=== PATIENT | male | born 1955 | race Caucasian/White ===

== ENCOUNTER 2016-09-17 08:00 | Observation (INO) | payer MEDICAID ==
[~2016-09-17] VITALS: Ht 180.3 cm; Wt 124.9 kg
[~2016-09-17 08:00] MED LIST: HYDR2TAB13 PO
[2016-10-01 10:12] VITALS: BP 149/79
[2016-10-01] MEDS ORDERED: GABA100C8 PO (10:46)
[2016-10-01] MEDS ORDERED: ATOR20TA9 PO (10:46)
[2016-10-01] MEDS ORDERED: TRAZ50TA18 PO (10:46)
[2016-10-01] MEDS ORDERED: PRIM50TA PO (10:46)
[2016-10-01] MEDS ORDERED: POTA20TA89 PO (10:46)
[2016-10-01] MEDS ORDERED: LISI40TA PO (10:46)
[2016-10-01] MEDS ORDERED: FLUO20CA19 PO (10:46)
[2016-10-01] MEDS ORDERED: INSU100V8 SQ (10:46)
[2016-10-01] MEDS ORDERED: DULA0.75 SC (10:46)
[2016-10-01] MEDS ORDERED: NAPR500T8 PO (10:46)
[2016-10-01] MEDS ORDERED: AMLO10TA2 PO (10:46)
[2016-10-01] MEDS ORDERED: TAMS0.4C2 PO (10:46)
[2016-10-01] MEDS ORDERED: METF10002 PO (10:46)
[2016-10-01] MEDS ORDERED: ASPI-496 PO (10:46)
[2016-10-01] MEDS ORDERED: FURO20TA3 PO (10:46)
[2016-10-01] MEDS ORDERED: ERGO500017 PO (10:46)
[2016-10-15] MEDS ORDERED: LACTATED RINGERS 1,000 ML IV SCH (06:03)
[2016-10-15 06:36] LABS: DAU SCREEN DISCLAIMER
[2016-10-15] MEDS ORDERED: FENTANYL PF 250 MCG/5ML ONE (06:40)
[2016-10-15] MEDS ORDERED: MIDAZOLAM 1 MG/ML, 2ML ONE ×2 (06:41→12:23)
[2016-10-15] MEDS ORDERED: ROPIvacaine/PF 0.2%, 20 ML ONE (06:48)
[2016-10-15] MEDS ORDERED: METOCLOPRAMIDE 5 MG/ML, 2ML ONE (07:14)
[2016-10-15] MEDS ORDERED: SUCCINYLCHOLINE 20 MG/ML, 10ML ONE (07:14)
[2016-10-15] MEDS ORDERED: CEFAZOLIN 1,000 MG ONE (07:14)
[2016-10-15] MEDS ORDERED: ROCURONIUM 10 MG/ML ONE (07:14)
[2016-10-15] MEDS ORDERED: ONDANSETRON 2MG/ML, 2ML ONE ×2 (07:14→11:47)
[2016-10-15] MEDS ORDERED: PROPOFOL 10 MG/ML, 20ML ONE (07:14)
[2016-10-15] MEDS ORDERED: NEOSTIGMINE 1 MG/ML, 10ML ONE (07:14)
[2016-10-15] MEDS ORDERED: ALBUTEROL SULFATE 2.5 MG/3 ML NPPB PRN (08:30)
[2016-10-15] MEDS ORDERED: ONDANSETRON 2MG/ML, 2ML IVPush PRN ×2 (08:30→11:30)
[2016-10-15] MEDS ORDERED: OXYcodone 5 MG/5 ML ORAL.SOL UDC PO PRN (08:30)
[2016-10-15] MEDS ORDERED: MIDAZOLAM 1 MG/ML, 2ML IV PRN (08:30)
[2016-10-15] MEDS ORDERED: ACETAMINOPHEN 325 MG TABLET PO PRN (08:30)
[2016-10-15] MEDS ORDERED: PROMETHAZINE 25 MG/ML, 1ML IV PRN (08:30)
[2016-10-15] MEDS ORDERED: LABETALOL 5MG/ML, 20ML IV PRN (08:30)
[2016-10-15] MEDS ORDERED: hydrALAzine 20 MG/ML, 1ML IV PRN (08:30)
[2016-10-15] MEDS ORDERED: MEPERIDINE/PF 25MG/0.5ML IVPush PRN (08:30)
[2016-10-15] MEDS ORDERED: METOPROLOL 1 MG/ML, 5ML IV PRN (08:30)
[2016-10-15] MEDS ORDERED: EPHEDRINE 50 MG/ML, 1ML IVPush PRN (08:30)
[2016-10-15] MEDS ORDERED: ALBUTEROL/IPRATROPIUM 2.5MG/0.5MG, 3 ML NPPB PRN (08:30)
[2016-10-15] MEDS ORDERED: PROMETHAZINE 25 MG/ML, 1ML IM PRN (11:30)
[2016-10-15] MEDS ORDERED: SENNA/DOCUSATE TABLET PO PRN (11:30)
[2016-10-15] MEDS ORDERED: HYDROcodone/APAP 5/325 TABLET PO PRN (11:30)
[2016-10-15] MEDS ORDERED: ACETAMINOPHEN 650 MG/20.3 ML UDC ONE (11:46)
[2016-10-15] MEDS ORDERED: ACETAMINOPHEN 325 MG TABLET ONE (11:47)
[2016-10-15] MEDS ORDERED: FENTANYL PF 100 MCG/2ML ONE (11:47)
[2016-10-15] MEDS ORDERED: HYDROmorphone 2 MG/ML, 1ML ONE (11:47)
[2016-10-15] MEDS ORDERED: OXYcodone 5 MG/5 ML ORAL.SOL UDC ONE (11:48)
[2016-10-15] MEDS: FENTANYL PF 100 MCG/2ML IV PRN ×2 (11:50→12:24)
[2016-10-15] MEDS: HYDROmorphone 1 MG/ML, 1ML IV PRN ×4 (11:53→12:52)
[2016-10-15] MEDS ORDERED: TRAZODONE 50MG TABLET PO PRN (12:00)
[2016-10-15 13:05] VITALS: BP 96/60
[2016-10-15] MEDS: morphine SULFATE 10 MG/ML, 1ML IVPush PRN ×8 (14:18→23:03)
[2016-10-15 14:20] VITALS: BP 101/61
[2016-10-15] MEDS: CEFAZOLIN PMX 2GM/50ML 50 ML IVPB SCH (15:36)
[2016-10-15] MEDS: OXYcodone/APAP 5/325MG TABLET PO PRN ×2 (15:49→20:06)
[2016-10-15 20:00] VITALS: BP 129/76
[2016-10-15] MEDS: GABAPENTIN 300 MG CAPSULE PO SCH (20:06)
[2016-10-15] MEDS: PRIMIDONE 50 MG TABLET PO SCH (20:07)
[2016-10-15] MEDS: INSULIN DETEMIR 100 UNITS/ML, PEN SQ-INSULIN SCH (20:50)
[2016-10-15] MEDS ORDERED: TAMSULOSIN 0.4 MG CAP.ER.24H PO SCH (21:00)
[2016-10-15] MEDS ORDERED: ATORVASTATIN 20 MG TABLET PO SCH (21:00)
[2016-10-15 22:07] VITALS: BP 135/84
[2016-10-16 00:10] VITALS: BP 129/69
[2016-10-16] MEDS: OXYcodone/APAP 5/325MG TABLET PO PRN ×5 (00:12→23:23)
[2016-10-16] MEDS: CEFAZOLIN PMX 2GM/50ML 50 ML IVPB SCH (00:12)
[2016-10-16] MEDS: morphine SULFATE 10 MG/ML, 1ML IVPush PRN ×4 (00:18→04:48)
[2016-10-16 04:07] VITALS: BP 117/69
[2016-10-16] MEDS ORDERED: TRAZODONE 50MG TABLET PO PRN (08:00)
[2016-10-16] MEDS ORDERED: ERGOCALCIFEROL 50,000 UNIT CAPSULE PO SCH (08:00)
[2016-10-16] MEDS ORDERED: DOCUSATE 100 MG CAPSULE PO PRN (08:00)
[2016-10-16] MEDS ORDERED: ONDANSETRON ODT 4 MG PO PRN (08:00)
[2016-10-16 08:16] VITALS: BP 130/78
[2016-10-16] MEDS ORDERED: FUROSEMIDE 20 MG TABLET PO SCH ×2 (09:00)
[2016-10-16] MEDS ORDERED: TEMPLATE NON-FORMULARY MED. (Amlodipine Besylate (Amlodipine Besylate**) 10 MG) PO SCH (09:00)
[2016-10-16] MEDS ORDERED: GABAPENTIN 300 MG CAPSULE PO SCH (09:00)
[2016-10-16] MEDS ORDERED: metFORMIN 500 MG TABLET PO SCH (09:00)
[2016-10-16] MEDS ORDERED: ASPIRIN 81 MG TABLET EC PO SCH (09:00)
[2016-10-16] MEDS ORDERED: LISINOPRIL 20 MG TABLET PO SCH ×2 (09:00)
[2016-10-16] MEDS ORDERED: FLUOXETINE 20 MG CAPSULE PO SCH ×2 (09:00)
[2016-10-16] MEDS: PRIMIDONE 50 MG TABLET PO SCH ×4 (09:00→22:03)
[2016-10-16] MEDS: AMLODIPINE 5 MG TABLET PO SCH (09:42)
[2016-10-16] MEDS: GABAPENTIN 300 MG CAPSULE PO SCH (09:42)
[2016-10-16] MEDS: ASPIRIN 81 MG TABLET EC PO SCH (09:42)
[2016-10-16] MEDS: INSULIN DETEMIR 100 UNITS/ML, PEN SQ-INSULIN SCH ×2 (09:43→22:03)
[2016-10-16] MEDS: POTASSIUM CHLORIDE 20 MEQ TAB.ER.PRT PO SCH (11:40)
[2016-10-16] MEDS: INSULIN ASPART 100 UNITS/ML, PEN SQ-INSULIN SCH ×3 (12:26→21:00)
[2016-10-16 13:32] VITALS: BP 123/74
[2016-10-16] MEDS: METOPROLOL TARTRATE 25 MG TABLET PO SCH (17:28)
[2016-10-16] MEDS ORDERED: ATORVASTATIN 20 MG TABLET PO SCH (21:00)
[2016-10-16] MEDS ORDERED: TAMSULOSIN 0.4 MG CAP.ER.24H PO SCH (21:00)
[2016-10-16 21:52] VITALS: BP 115/65
[2016-10-16] MEDS: TEMAZEPAM 15 MG CAPSULE PO PRN (23:43)
[2016-10-17] MEDS: TEMAZEPAM 15 MG CAPSULE PO PRN (00:40)
[2016-10-17 02:17] VITALS: BP 127/63
[2016-10-17] MEDS: OXYcodone/APAP 5/325MG TABLET PO PRN ×2 (03:41→06:26)
[2016-10-17] MEDS: METOPROLOL TARTRATE 25 MG TABLET PO SCH (06:26)
[2016-10-17 07:55] VITALS: BP 105/58
[2016-10-17] MEDS: INSULIN ASPART 100 UNITS/ML, PEN SQ-INSULIN SCH ×2 (08:55→11:27)
[2016-10-17] MEDS: AMLODIPINE 5 MG TABLET PO SCH (08:57)
[2016-10-17] MEDS: PRIMIDONE 50 MG TABLET PO SCH ×2 (08:57→09:02)
[2016-10-17] MEDS ORDERED: LISINOPRIL 20 MG TABLET PO SCH (09:00)
[2016-10-17] MEDS: ASPIRIN 81 MG TABLET EC PO SCH (09:02)
[2016-10-17] MEDS: POTASSIUM CHLORIDE 20 MEQ TAB.ER.PRT PO SCH (09:02)
[2016-10-17] MEDS: INSULIN DETEMIR 100 UNITS/ML, PEN SQ-INSULIN SCH (09:05)
[2016-10-17 12:20] VITALS: BP 121/72
[2016-10-17] MEDS ORDERED: METO25TA35 PO ×2 (13:08→13:10)
[2016-10-17] MEDS ORDERED: LISI-170 PO (13:14)
[2016-10-17] MEDS ORDERED: OXYC-302 PO (13:33)
[2016-10-17 13:45] VITALS: BP 114/62
== END 2016-10-17 15:04 | disposition home or self-care (01) ==
LOC: INTOOBSV 10-15 05:16 → ORIP 10-15 05:16 → 4NOR 10-15 13:00
PROVIDERS: ADMIT Orthopaedic Surgery; ATTEND Internal Medicine
DX: S42.201K Unspecified fracture of upper end of right humerus, subsequent encounter for fracture with nonunion (principal); E11.9 Type 2 diabetes mellitus without complications; I10 Essential (primary) hypertension; F17.200 Nicotine dependence, unspecified, uncomplicated; Z96.611 Presence of right artificial shoulder joint; X58.XXXA Exposure to other specified factors, initial encounter; Y92.89 Other specified places as the place of occurrence of the external cause; Y93.89 Activity, other specified; Y99.8 Other external cause status
CPT/HCPCS: 23474; 36415; 73020; 80307; 82962; 83036; 96365; 96372; 96375; 96376; C1713; C1776; G0378; J0330; J0690; J1170; J1815; J2250; J2270; J2405; J2704; J2710; J2765; J2795; J3010; J7120

== ENCOUNTER → 2016-10-01 | Outpatient (CLI) | payer MEDICAID ==
[~2016-10-01] MED LIST changes: +AMLO10TA2 PO; +ASPI-496 PO; +ATOR20TA9 PO; +DULA0.75 SC; +ERGO500017 PO; +FLUO20CA19 PO; +FURO20TA3 PO; +GABA100C8 PO; +INSU100V8 SQ; +LISI40TA PO; +METF10002 PO; +NAPR500T8 PO; +POTA20TA89 PO; +PRIM50TA PO; +TAMS0.4C2 PO; +TRAZ50TA18 PO
[2016-10-01 11:06] LABS: ASPARTATE AMINO TRANSFERASE 13 U/L (15-37); BLOOD UREA NITROGEN 29 mg/dL (7-18)
== END | disposition home or self-care (01) ==
LOC: STAR 09:44
PROVIDERS: ATTEND Orthopaedic Surgery
DX: Z01.818 Encounter for other preprocedural examination (principal); S42.354D Nondisplaced comminuted fracture of shaft of humerus, right arm, subsequent encounter for fracture with routine healing; X58.XXXD Exposure to other specified factors, subsequent encounter; E11.9 Type 2 diabetes mellitus without complications
CPT/HCPCS: 36415; 80053; 93005

== ENCOUNTER 2017-01-12 05:16 | Observation (INO) | payer MEDICAID ==
[2017-01-07 10:33] VITALS: BP 181/85
[~2017-01-12] VITALS: Ht 177.8 cm; Wt 126.6 kg
[~2017-01-12 05:16] MED LIST changes: +CARBIDOPA-LEVO PEG; +DONE10TA7 PO; +GABA-826 PO; -GABA100C8 PO; -HYDR2TAB13 PO; +HYDR2TAB29 PO; +LISI-170 PO; +METO25TA35 PO; +OXYC-302 PO
[2017-01-12] MEDS ORDERED: VANCOMYCIN PER PHARMACY MC STA (05:45)
[2017-01-12] MEDS ORDERED: LACTATED RINGERS 1,000 ML IV SCH (05:59)
[2017-01-12] MEDS ORDERED: LIDOCAINE 1%, 2ML SQ PRN (06:00)
[2017-01-12] MEDS ORDERED: VANCOMYCIN 2,000 MG in SODIUM CHLORIDE 0.9% 500 ML IV ONE (06:00)
[2017-01-12] MEDS ORDERED: LIDOCAINE 1%, 2ML ONE ×2 (06:07→06:56)
[2017-01-12] MEDS ORDERED: SCOPOLAMINE PATCH, 1.5MG PATCH.TD72 TD ONE ×2 (06:07→06:30)
[2017-01-12] MEDS ORDERED: FENTANYL PF 100 MCG/2ML ONE ×3 (06:10→07:09)
[2017-01-12] MEDS ORDERED: MIDAZOLAM 1 MG/ML, 2ML ONE (06:10)
[2017-01-12] MEDS ORDERED: BUPIVACAINE/PF 0.5% ONE ×2 (06:13→06:36)
[2017-01-12] MEDS ORDERED: VANCOMYCIN 1,000 MG ONE (06:36)
[2017-01-12] MEDS ORDERED: CLINDAMYCIN 150 MG/ML, 6ML ONE (06:36)
[2017-01-12] MEDS ORDERED: ROPIvacaine/PF 0.5%, 30 ML ONE (06:36)
[2017-01-12] MEDS ORDERED: CARB1TAB20 PO (06:50)
[2017-01-12] MEDS ORDERED: CARB1TAB22 PO (06:51)
[2017-01-12] MEDS ORDERED: RANITIDINE PO (06:58)
[2017-01-12] MEDS ORDERED: FENTANYL PF 100 MCG/2ML IV PRN (08:30)
[2017-01-12] MEDS ORDERED: hydrALAzine 20 MG/ML, 1ML IV PRN (08:30)
[2017-01-12] MEDS ORDERED: ALBUTEROL/IPRATROPIUM 2.5MG/0.5MG, 3 ML NPPB PRN (08:30)
[2017-01-12] MEDS ORDERED: METOPROLOL 1 MG/ML, 5ML IV PRN (08:30)
[2017-01-12] MEDS ORDERED: HYDROmorphone 1 MG/ML, 1ML IV PRN (08:30)
[2017-01-12] MEDS ORDERED: OXYcodone 5 MG/5 ML ORAL.SOL UDC PO PRN (08:30)
[2017-01-12] MEDS ORDERED: PROMETHAZINE 25 MG/ML, 1ML IV PRN (08:30)
[2017-01-12] MEDS ORDERED: MEPERIDINE/PF 25MG/0.5ML IVPush PRN (08:30)
[2017-01-12] MEDS ORDERED: ACETAMINOPHEN 325 MG TABLET PO PRN (08:30)
[2017-01-12] MEDS ORDERED: D5%-0.45% NACL 1,000 ML IV SCH (08:59)
[2017-01-12] MEDS: MULTIVITAMINS/MINERALS TABLET PO SCH (09:00)
[2017-01-12] MEDS ORDERED: morphine SULFATE 10 MG/ML, 1ML IVPush PRN (09:00)
[2017-01-12] MEDS ORDERED: ONDANSETRON 2MG/ML, 2ML IVPush PRN (09:00)
[2017-01-12] MEDS ORDERED: MAGNESIUM HYDROXIDE 8%, 30ML UDC PO PRN (09:00)
[2017-01-12] MEDS ORDERED: BISACODYL 10 MG SUPP PR PRN (09:00)
[2017-01-12] MEDS ORDERED: HYDROcodone/APAP 5/325 TABLET PO PRN (09:00)
[2017-01-12] MEDS ORDERED: SENNA/DOCUSATE TABLET PO PRN (09:00)
[2017-01-12] MEDS ORDERED: OXYcodone 5 MG/5 ML ORAL.SOL UDC ONE (09:27)
[2017-01-12] MEDS ORDERED: ACETAMINOPHEN 650 MG/20.3 ML UDC ONE (09:27)
[2017-01-12 10:15] VITALS: BP 135/73
[2017-01-12] MEDS: OXYcodone/APAP 5/325MG TABLET PO PRN ×3 (13:53→23:08)
[2017-01-12 13:57] VITALS: BP 136/77
[2017-01-12] MEDS: CLINDAMYCIN PMX 600MG/50ML 50 ML IVPB SCH ×2 (15:32→22:41)
[2017-01-12] MEDS ORDERED: NICOTINE 21 MG/24 HR PATCH.TD24 TD SCH (16:00)
[2017-01-12] MEDS ORDERED: PROPOFOL 10 MG/ML, 20ML ONE (16:31)
[2017-01-12] MEDS ORDERED: SUCCINYLCHOLINE 20 MG/ML, 10ML ONE (16:31)
[2017-01-12] MEDS ORDERED: EPHEDRINE 50 MG/ML, 1ML ONE (16:31)
[2017-01-12] MEDS ORDERED: ONDANSETRON 2MG/ML, 2ML ONE (16:31)
[2017-01-12] MEDS: CARBIDOPA/LEVODOPA CR 25 MG/100 MG TABLET PO SCH ×2 (17:01→22:24)
[2017-01-12] MEDS: INSULIN ASPART 100 UNITS/ML, PEN SQ-INSULIN SCH ×2 (17:44→22:40)
[2017-01-12 19:00] VITALS: BP 128/73
[2017-01-12] MEDS ORDERED: ATORVASTATIN 20 MG TABLET PO SCH (21:00)
[2017-01-12] MEDS ORDERED: DONEPEZIL 10 MG TABLET PO SCH (21:00)
[2017-01-12] MEDS: PRIMIDONE 50 MG TABLET PO SCH (22:24)
[2017-01-12] MEDS: GABAPENTIN 300 MG CAPSULE PO SCH (22:24)
[2017-01-12] MEDS: SODIUM CHLORIDE 0.45% 1,000 ML IV SCH (22:25)
[2017-01-12 23:53] VITALS: BP 152/89
[2017-01-13] MEDS: OXYcodone/APAP 5/325MG TABLET PO PRN ×3 (03:01→12:01)
[2017-01-13 03:45] VITALS: BP 142/66
[2017-01-13] MEDS: CARBIDOPA/LEVODOPA CR 25 MG/100 MG TABLET PO SCH ×2 (06:44→10:35)
[2017-01-13] MEDS: CLINDAMYCIN PMX 600MG/50ML 50 ML IVPB SCH (06:44)
[2017-01-13 07:32] VITALS: BP 128/67
[2017-01-13] MEDS: MULTIVITAMINS/MINERALS TABLET PO SCH (08:20)
[2017-01-13] MEDS: GABAPENTIN 300 MG CAPSULE PO SCH (08:20)
[2017-01-13] MEDS: SODIUM CHLORIDE 0.45% 1,000 ML IV SCH (08:20)
[2017-01-13] MEDS: INSULIN ASPART 100 UNITS/ML, PEN SQ-INSULIN SCH ×2 (08:21→11:47)
[2017-01-13] MEDS: PRIMIDONE 50 MG TABLET PO SCH (08:21)
[2017-01-13] MEDS ORDERED: TAMSULOSIN 0.4 MG CAP.ER.24H PO SCH (09:00)
[2017-01-13] MEDS ORDERED: LISINOPRIL 20 MG TABLET PO SCH (09:00)
[2017-01-13] MEDS ORDERED: AMLODIPINE 5 MG TABLET PO SCH (09:00)
[2017-01-13] MEDS ORDERED: FLUOXETINE 20 MG CAPSULE PO SCH (09:00)
[2017-01-13 11:53] VITALS: BP 137/79
[2017-01-13] MEDS ORDERED: OXYC5CAP2 PO (11:58)
== END 2017-01-13 13:18 | disposition home or self-care (01) ==
LOC: INTOOBSV 05:16 → ORIP 05:16 → 4NOR 10:10
PROVIDERS: ADMIT Orthopaedic Surgery; ATTEND Orthopaedic Surgery
DX: T84.028A Dislocation of other internal joint prosthesis, initial encounter (principal); S42.201A Unspecified fracture of upper end of right humerus, initial encounter for closed fracture; E11.9 Type 2 diabetes mellitus without complications; I10 Essential (primary) hypertension; F10.10 Alcohol abuse, uncomplicated; E66.9 Obesity, unspecified; M25.319 Other instability, unspecified shoulder; F17.210 Nicotine dependence, cigarettes, uncomplicated; Y79.2 Prosthetic and other implants, materials and accessory orthopedic devices associated with adverse incidents; X58.XXXA Exposure to other specified factors, initial encounter; Y93.89 Activity, other specified; Y92.89 Other specified places as the place of occurrence of the external cause; Y99.8 Other external cause status; Z96.611 Presence of right artificial shoulder joint
CPT/HCPCS: 23473; 82962; 87070; 87075; 87077; 87186; 87205; 96365; 96366; 96367; 96372; 96375; 97166; C1776; G0378; J0330; J1815; J2250; J2405; J2704; J3010; J3370; J3490; J7040; J7120; J2795

== ENCOUNTER 2018-10-07 12:15 | Inpatient (IN) | payer MEDICAID ==
[~2018-10-07] VITALS: Ht 180.3 cm; Wt 130.0 kg
[~2018-10-07 12:15] MED LIST changes: -AMLO10TA2 PO; +AMLO10TA8 PO; +ATOR20TA37 PO; -ATOR20TA9 PO; +CARB1TAB20 PO; +CARB1TAB22 PO; +OXYC5CAP2 PO; +RANITIDINE PO; -TRAZ50TA18 PO; +TRAZ50TA66 PO
--- NOTE | 2018-10-07 12:35 | NUR ---
BREAK RN: PT STEADY UPON AMBULATION TO RESTROOM WITH PT'S OWN WALKER. PT GRUFF WITH PLANT TENDER STATING "WHEN I'M I GOING TO GET A REAL ROOM? THERE'S NO BATHROOMS HERE?" RN EXPLAINED IN THE ER, THERE ARE NOT BATHROOMS IN ALL THE ROOMS. PT STATED "WELL I'M HERE TO BE ADMITTED FOR ANTIBIOTICS FOR MY LEG FOR A FEW DAYS, WHY DON'T I HAVE A REAL ROOM UPSTAIRS?" RN EXPLAINED PROCESS FOR ADMISSION. PT VERBALIZED UNDERSTANDING.
[2018-10-07] MEDS ORDERED: SODIUM CHLORIDE FLUSH 10ML SYR IVF ONE ×2 (13:00→13:30)
[2018-10-07 13:27] LABS: BASOPHILS # (AUTO) 0.02 x10^3/uL (0-0.1); BASOPHILS % (AUTO) 0 % (0-1); EOSINOPHILS # (AUTO) 0.13 x10^3/uL (0-0.4); EOSINOPHILS % (AUTO) 1 % (1-7); LYMPHOCYTES # (AUTO) 1.19 x10^3/uL (1-3.4); LYMPHOCYTES % (AUTO) 10 % (22-44); MD NO; MEAN CORPUSCULAR HEMOGLOBIN 26.4 pg (27.5-34.5); MEAN CORPUSCULAR HGB CONC 32.9 g/dL (33.2-36.2); MEAN CORPUSCULAR VOLUME 80.2 fL (81-97); MEAN PLATELET VOLUME 8.3 fL (7.4-10.4); MONOCYTES # (AUTO) 0.54 x10^3/uL (0.2-0.8); MONOCYTES % (AUTO) 5 % (2-9); NEUTROPHILS # (AUTO) 9.89 x10^3/uL (1.8-6.8); NEUTROPHILS % (AUTO) 84 % (42-75); PLATELET COUNT 265 x10^3/uL (130-400); RED CELL DISTRIBUTION WIDTH 16.9 % (9.4-14.8)
[2018-10-07] MEDS ORDERED: VANCOMYCIN PER PHARMACY IV ONE (13:30)
[2018-10-07] MEDS ORDERED: VANCOMYCIN 2,500 MG in SODIUM CHLORIDE 0.9% 500 ML IV ONE (13:30)
[2018-10-07] MEDS ORDERED: AMPICILLIN/SULBACTAM 3 GM in SODIUM CHLORIDE 0.9% 100 ML IV ONE (13:30)
[2018-10-07 13:39] LABS: ALBUMIN 3.3 g/dL (3.4-5.0); ANION GAP 10 mmol/L (5-15); CALCIUM 9.1 mg/dL (8.5-10.1); CHLORIDE 104 mmol/L (98-107); CREATININE 0.87 mg/dL (0.7-1.3)
--- NOTE | 2018-10-07 13:44 | NUR ---
all cultures drawn. patient getting antibiotics now. on monitor, vss.
--- NOTE | 2018-10-07 13:46 | NUR ---
patient initially arrived for wound on bottom of left foot. its a oozing infected ulcer quarter sized ball of foot. he has poor cap refill ble and pink discolorations to left foot. 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 patient states he has no feeling in ble and he unsure how long wound has been present. he is kind, cooperative. he is unkept with visible dirt on hands/long chamorro/fingers and body. patient denies any pain. patient lives [facility]. he is a poor historian and is unsure about his meds and history. he is sure he is diabetic.
[2018-10-07] MEDS ORDERED: BACITRACIN ZINC OINT 500U/GM, 0.9 GM ONE (15:06)
--- NOTE | 2018-10-07 15:39 | NUR ---
patient just left for mri. patient awaiting room upstairs for admission
--- NOTE | 2018-10-07 15:51 | NUR ---
patient in mri. report given to Mercedes for room 457. patient will be admitted once he is back from mri.
--- NOTE | 2018-10-07 16:27 | NUR ---
called mri and patient will go direct to room from mri. patient belongings and fwwalker brought to room.
[2018-10-07] MEDS ORDERED: GADOBUTROL 10 MMOL/10 ML PFS ONE (16:34)
[2018-10-07 17:26] VITALS: BP 145/66
[2018-10-07] MEDS ORDERED: morphine SULFATE 10 MG/ML, 1ML IVPush PRN (18:00)
[2018-10-07] MEDS ORDERED: POLYETHYLENE GLYCOL 17 GM PACKET PO PRN (18:00)
[2018-10-07] MEDS ORDERED: BISACODYL 10 MG SUPP PR PRN (18:00)
[2018-10-07] MEDS ORDERED: ACETAMINOPHEN 325 MG TABLET PO PRN (18:00)
[2018-10-07] MEDS ORDERED: DOCUSATE 100 MG CAPSULE PO PRN (18:00)
[2018-10-07] MEDS ORDERED: VANCOMYCIN PER PHARMACY MC PRN (18:00)
[2018-10-07] MEDS ORDERED: PROMETHAZINE 25 MG/ML, 1ML IM PRN (18:00)
[2018-10-07] MEDS: INSULIN GLARGINE 100 UNITS/ML, PEN SQ-INSULIN SCH ×2 (18:00→21:19)
[2018-10-07] MEDS ORDERED: VANCOMYCIN PMX 1GM/200ML 200 ML IV ONE (18:00)
[2018-10-07] MEDS ORDERED: hydrALAzine 20 MG/ML, 1ML IVPush PRN (18:00)
[2018-10-07] MEDS ORDERED: ONDANSETRON ODT 4 MG PO PRN (18:00)
[2018-10-07] MEDS ORDERED: ONDANSETRON 2MG/ML, 2ML IVPush PRN (18:00)
[2018-10-07] MEDS: SODIUM CHLORIDE 0.9% 1,000 ML IV SCH (18:25)
[2018-10-07] MEDS: CARBIDOPA/LEVODOPA 25 MG/100 MG TABLET PO SCH ×2 (18:25→20:51)
[2018-10-07] MEDS: metFORMIN 500 MG TABLET PO SCH ×2 (18:25→20:51)
[2018-10-07] MEDS: HEPARIN 5,000 UNITS/ML, 1ML SQ SCH (18:28)
[2018-10-07] MEDS ORDERED: PHARMACOKINETIC CONSULTATION MC ONE (18:30)
[2018-10-07] MEDS ORDERED: PHARMACOKINETIC MONITORING MC PRN (18:30)
[2018-10-07 18:58] LABS: C-REACTIVE PROTEIN, QUANT 2.1 mg/dL (0.02-0.49); FREE T4 (FREE THYROXINE) 1.11 ng/dL (0.76-1.46); HCT (SEDRATE) 48.9 % (39.2-51.8); THYROID STIMULATING HORMONE 0.631 mIU/L (0.358-3.740)
[2018-10-07 19:22] VITALS: BP 160/79
[2018-10-07] MEDS ORDERED: VANCOMYCIN 2,100 MG in SODIUM CHLORIDE 0.9% 500 ML IV SCH ×2 (19:30→20:41)
[2018-10-07 20:03] LABS: HEMOGLOBIN A1C 6.8 % (4.2-6.3)
[2018-10-07] MEDS: FAMOTIDINE 20 MG TABLET PO SCH (20:34)
[2018-10-07] MEDS: ASPIRIN 81 MG TABLET EC PO SCH (20:34)
[2018-10-07] MEDS: PRIMIDONE 50 MG TABLET PO SCH (20:34)
[2018-10-07] MEDS: GABAPENTIN 300 MG CAPSULE PO SCH (20:34)
[2018-10-08] MEDS: AMPICILLIN/SULBACTAM 3 GM in SODIUM CHLORIDE 0.9% 100 ML IV SCH ×4 (01:00→20:40)
[2018-10-08 01:10] VITALS: BP 137/72
[2018-10-08] MEDS: HEPARIN 5,000 UNITS/ML, 1ML SQ SCH ×3 (03:42→20:40)
[2018-10-08] MEDS: CARBIDOPA/LEVODOPA 25 MG/100 MG TABLET PO SCH ×4 (05:23→20:41)
[2018-10-08 05:39] LABS: ALBUMIN 2.6 g/dL (3.4-5.0); ANION GAP 7 mmol/L (5-15); CALCIUM 8.1 mg/dL (8.5-10.1); CHLORIDE 109 mmol/L (98-107)
[2018-10-08 05:42] LABS: ALANINE AMINOTRANSFERASE 9 U/L (12-78); ALKALINE PHOSPHATASE 91 U/L (45-117); BILIRUBIN,TOTAL 0.3 mg/dL (0.2-1.0); CHOL/HDL RATIO 2.1; CHOLESTEROL, TOTAL 93 mg/dL (140-239); CREATININE 0.69 mg/dL (0.7-1.3); HDL CHOL % 47 % (26-37); HDL CHOLESTEROL (DIRECT) 44 mg/dL (40-60); LDL CHOLESTEROL,CALCULATED 27 mg/dL (54-169); LDL/HDL RATIO 0.6 (0.5-3.0); TOTAL PROTEIN 6.2 g/dL (6.4-8.2); TRIGLYCERIDES 112 mg/dL (50-200); VLDL CHOLESTEROL 22 mg/dL (0-25)
[2018-10-08 05:47] LABS: BASOPHILS # (AUTO) 0.03 x10^3/uL (0-0.1); BASOPHILS % (AUTO) 0 % (0-1); EOSINOPHILS # (AUTO) 0.24 x10^3/uL (0-0.4); EOSINOPHILS % (AUTO) 2 % (1-7); LYMPHOCYTES # (AUTO) 1.23 x10^3/uL (1-3.4); LYMPHOCYTES % (AUTO) 11 % (22-44); MD NO; MEAN CORPUSCULAR HEMOGLOBIN 26.2 pg (27.5-34.5); MEAN CORPUSCULAR HGB CONC 32.7 g/dL (33.2-36.2); MEAN PLATELET VOLUME 8.6 fL (7.4-10.4); MONOCYTES # (AUTO) 0.54 x10^3/uL (0.2-0.8); MONOCYTES % (AUTO) 5 % (2-9); NEUTROPHILS # (AUTO) 8.88 x10^3/uL (1.8-6.8); NEUTROPHILS % (AUTO) 81 % (42-75); PLATELET COUNT 230 x10^3/uL (130-400); RED BLOOD COUNT 5.54 x10^6/uL (4.38-5.82); RED CELL DISTRIBUTION WIDTH 17.5 % (9.4-14.8)
[2018-10-08 08:05] VITALS: BP 137/73
[2018-10-08] MEDS: PRIMIDONE 50 MG TABLET PO SCH ×2 (08:23→20:41)
[2018-10-08] MEDS: FAMOTIDINE 20 MG TABLET PO SCH ×2 (08:24→20:41)
[2018-10-08] MEDS: TAMSULOSIN 0.4 MG CAP.ER.24H PO SCH (08:25)
[2018-10-08] MEDS: ATORVASTATIN 20 MG TABLET PO SCH (08:25)
[2018-10-08] MEDS: DONEPEZIL 10 MG TABLET PO SCH (08:25)
[2018-10-08] MEDS: GABAPENTIN 300 MG CAPSULE PO SCH ×2 (08:25→20:41)
[2018-10-08] MEDS: FUROSEMIDE 20 MG TABLET PO SCH (08:25)
[2018-10-08] MEDS: AMLODIPINE 10 MG TAB PO SCH (08:26)
[2018-10-08] MEDS: LISINOPRIL 20 MG TABLET PO SCH (08:34)
[2018-10-08] MEDS ORDERED: RANITIDINE PO SCH (09:00)
[2018-10-08] MEDS: INSULIN LISPRO 100 UNITS/ML, PEN SQ-INSULIN SCH ×3 (11:00→20:48)
[2018-10-08] MEDS: SODIUM CHLORIDE 0.9% 1,000 ML IV SCH (11:18)
[2018-10-08] MEDS: POTASSIUM CHLORIDE 20 MEQ TAB.ER.PRT PO SCH (12:23)
[2018-10-08 13:33] VITALS: BP 136/80
[2018-10-08] MEDS: FLUOXETINE HCL 20 MG CAPSULE PO SCH (16:09)
[2018-10-08 19:17] VITALS: BP 152/64
[2018-10-08] MEDS: ASPIRIN 81 MG TABLET EC PO SCH (20:43)
[2018-10-08] MEDS: INSULIN GLARGINE 100 UNITS/ML, PEN SQ-INSULIN SCH (20:49)
[2018-10-08] MEDS: VANCOMYCIN 2,100 MG in SODIUM CHLORIDE 0.9% 500 ML IV SCH (22:19)
[2018-10-09 00:04] VITALS: BP 146/77
[2018-10-09] MEDS: VANCOMYCIN 2,100 MG in SODIUM CHLORIDE 0.9% 500 ML IV SCH (03:30)
[2018-10-09] MEDS: INSULIN LISPRO 100 UNITS/ML, PEN SQ-INSULIN SCH ×4 (05:46→21:48)
[2018-10-09] MEDS: CARBIDOPA/LEVODOPA 25 MG/100 MG TABLET PO SCH ×4 (05:46→21:49)
[2018-10-09] MEDS: HEPARIN 5,000 UNITS/ML, 1ML SQ SCH ×3 (05:46→23:57)
[2018-10-09 08:00] VITALS: BP 142/78
[2018-10-09] MEDS: AMLODIPINE 10 MG TAB PO SCH (08:02)
[2018-10-09] MEDS: DONEPEZIL 10 MG TABLET PO SCH (08:03)
[2018-10-09] MEDS: FAMOTIDINE 20 MG TABLET PO SCH ×2 (08:03→21:49)
[2018-10-09] MEDS: ATORVASTATIN 20 MG TABLET PO SCH (08:03)
[2018-10-09] MEDS: LISINOPRIL 20 MG TABLET PO SCH (08:03)
[2018-10-09] MEDS: TAMSULOSIN 0.4 MG CAP.ER.24H PO SCH (08:03)
[2018-10-09] MEDS: FUROSEMIDE 20 MG TABLET PO SCH (08:03)
[2018-10-09] MEDS: GABAPENTIN 300 MG CAPSULE PO SCH ×2 (08:03→21:49)
[2018-10-09] MEDS: PRIMIDONE 50 MG TABLET PO SCH ×2 (10:17→21:49)
[2018-10-09] MEDS: AMPICILLIN/SULBACTAM 3 GM in SODIUM CHLORIDE 0.9% 100 ML IV SCH ×4 (10:17→23:52)
[2018-10-09] MEDS: POTASSIUM CHLORIDE 20 MEQ TAB.ER.PRT PO SCH (11:19)
[2018-10-09 15:45] VITALS: BP 131/69
[2018-10-09] MEDS: FLUOXETINE HCL 20 MG CAPSULE PO SCH (16:56)
[2018-10-09 20:13] VITALS: BP 159/79
[2018-10-09] MEDS: INSULIN GLARGINE 100 UNITS/ML, PEN SQ-INSULIN SCH (21:49)
[2018-10-09] MEDS: ASPIRIN 81 MG TABLET EC PO SCH (21:50)
[2018-10-10 01:02] VITALS: BP 169/89
[2018-10-10] MEDS ORDERED: VANCOMYCIN 2,100 MG in SODIUM CHLORIDE 0.9% 500 ML IV SCH (03:30)
[2018-10-10 05:03] VITALS: BP 146/83
[2018-10-10] MEDS: CARBIDOPA/LEVODOPA 25 MG/100 MG TABLET PO SCH ×4 (06:16→21:07)
[2018-10-10] MEDS: INSULIN LISPRO 100 UNITS/ML, PEN SQ-INSULIN SCH ×4 (06:19→21:11)
[2018-10-10] MEDS: HEPARIN 5,000 UNITS/ML, 1ML SQ SCH ×3 (07:56→23:52)
[2018-10-10] MEDS: ATORVASTATIN 20 MG TABLET PO SCH (07:57)
[2018-10-10] MEDS: LISINOPRIL 20 MG TABLET PO SCH (07:57)
[2018-10-10] MEDS: FAMOTIDINE 20 MG TABLET PO SCH ×2 (07:57→21:07)
[2018-10-10] MEDS: GABAPENTIN 300 MG CAPSULE PO SCH ×2 (07:57→21:08)
[2018-10-10] MEDS: DONEPEZIL 10 MG TABLET PO SCH (07:57)
[2018-10-10] MEDS: AMPICILLIN/SULBACTAM 3 GM in SODIUM CHLORIDE 0.9% 100 ML IV SCH ×2 (07:57→14:00)
[2018-10-10] MEDS: FUROSEMIDE 20 MG TABLET PO SCH (07:57)
[2018-10-10] MEDS: TAMSULOSIN 0.4 MG CAP.ER.24H PO SCH (07:57)
[2018-10-10] MEDS: AMLODIPINE 10 MG TAB PO SCH (07:57)
[2018-10-10 08:23] VITALS: BP 144/72
[2018-10-10] MEDS: PRIMIDONE 50 MG TABLET PO SCH ×2 (08:38→21:07)
[2018-10-10] MEDS: POTASSIUM CHLORIDE 20 MEQ TAB.ER.PRT PO SCH (10:43)
[2018-10-10 12:33] VITALS: BP 142/77
[2018-10-10] MEDS: VANCOMYCIN 2,100 MG in SODIUM CHLORIDE 0.9% 500 ML IV SCH (15:58)
[2018-10-10] MEDS: FLUOXETINE HCL 20 MG CAPSULE PO SCH (17:54)
[2018-10-10 19:25] VITALS: BP 140/80
[2018-10-10] MEDS: ASPIRIN 81 MG TABLET EC PO SCH (21:07)
[2018-10-10] MEDS: INSULIN GLARGINE 100 UNITS/ML, PEN SQ-INSULIN SCH (21:12)
[2018-10-11] MEDS: AMPICILLIN/SULBACTAM 3 GM in SODIUM CHLORIDE 0.9% 100 ML IV SCH ×4 (00:57→19:06)
[2018-10-11 02:29] VITALS: BP 157/82
[2018-10-11 04:08] LABS: BASOPHILS # (AUTO) 0.02 x10^3/uL (0-0.1); BASOPHILS % (AUTO) 0 % (0-1); EOSINOPHILS # (AUTO) 0.11 x10^3/uL (0-0.4); EOSINOPHILS % (AUTO) 1 % (1-7); LYMPHOCYTES # (AUTO) 1.15 x10^3/uL (1-3.4); LYMPHOCYTES % (AUTO) 13 % (22-44); MD NO; MEAN CORPUSCULAR HEMOGLOBIN 26.3 pg (27.5-34.5); MEAN CORPUSCULAR HGB CONC 32.8 g/dL (33.2-36.2); MEAN PLATELET VOLUME 8.4 fL (7.4-10.4); MONOCYTES # (AUTO) 0.53 x10^3/uL (0.2-0.8); MONOCYTES % (AUTO) 6 % (2-9); NEUTROPHILS # (AUTO) 6.74 x10^3/uL (1.8-6.8); NEUTROPHILS % (AUTO) 79 % (42-75); PLATELET COUNT 233 x10^3/uL (130-400); RED BLOOD COUNT 5.54 x10^6/uL (4.38-5.82); RED CELL DISTRIBUTION WIDTH 16.6 % (9.4-14.8)
[2018-10-11 04:17] LABS: ANION GAP 6 mmol/L (5-15); CALCIUM 8.4 mg/dL (8.5-10.1); CHLORIDE 106 mmol/L (98-107); CREATININE 0.61 mg/dL (0.7-1.3)
[2018-10-11] MEDS: CARBIDOPA/LEVODOPA 25 MG/100 MG TABLET PO SCH ×4 (06:14→22:08)
[2018-10-11] MEDS: ATORVASTATIN 20 MG TABLET PO SCH (07:33)
[2018-10-11] MEDS: DONEPEZIL 10 MG TABLET PO SCH (07:33)
[2018-10-11] MEDS: LISINOPRIL 20 MG TABLET PO SCH (07:33)
[2018-10-11] MEDS: GABAPENTIN 300 MG CAPSULE PO SCH ×2 (07:33→22:09)
[2018-10-11] MEDS: FAMOTIDINE 20 MG TABLET PO SCH ×2 (07:33→22:08)
[2018-10-11] MEDS: TAMSULOSIN 0.4 MG CAP.ER.24H PO SCH (07:33)
[2018-10-11] MEDS: PRIMIDONE 50 MG TABLET PO SCH ×2 (07:33→22:08)
[2018-10-11] MEDS: AMLODIPINE 10 MG TAB PO SCH (07:34)
[2018-10-11] MEDS: FUROSEMIDE 20 MG TABLET PO SCH (07:34)
[2018-10-11] MEDS: HEPARIN 5,000 UNITS/ML, 1ML SQ SCH ×3 (07:34→23:52)
[2018-10-11] MEDS: INSULIN LISPRO 100 UNITS/ML, PEN SQ-INSULIN SCH ×4 (07:34→22:22)
[2018-10-11 07:41] VITALS: BP 149/76
[2018-10-11] MEDS: VANCOMYCIN 2,100 MG in SODIUM CHLORIDE 0.9% 500 ML IV SCH (11:02)
[2018-10-11 13:08] VITALS: BP 142/66
[2018-10-11] MEDS: POTASSIUM CHLORIDE 20 MEQ TAB.ER.PRT PO SCH (13:58)
[2018-10-11] MEDS: FLUOXETINE HCL 20 MG CAPSULE PO SCH (17:46)
[2018-10-11 20:36] VITALS: BP 174/90
[2018-10-11] MEDS ORDERED: INSULIN GLARGINE 100 UNITS/ML, PEN SQ-INSULIN SCH (21:00)
[2018-10-11] MEDS: ASPIRIN 81 MG TABLET EC PO SCH (22:09)
[2018-10-12] MEDS: AMPICILLIN/SULBACTAM 3 GM in SODIUM CHLORIDE 0.9% 100 ML IV SCH ×4 (01:22→18:44)
[2018-10-12] MEDS: OXYcodone IR 5MG TABLET PO PRN ×2 (01:25→01:52)
[2018-10-12 01:37] VITALS: BP 177/91
[2018-10-12 01:38] VITALS: BP 149/77
[2018-10-12] MEDS: VANCOMYCIN 2,100 MG in SODIUM CHLORIDE 0.9% 500 ML IV SCH (04:35)
[2018-10-12 07:05] LABS: ALBUMIN 2.7 g/dL (3.4-5.0); ANION GAP 4 mmol/L (5-15); CALCIUM 8.3 mg/dL (8.5-10.1); CHLORIDE 107 mmol/L (98-107); CREATININE 0.45 mg/dL (0.7-1.3)
[2018-10-12] MEDS: INSULIN LISPRO 100 UNITS/ML, PEN SQ-INSULIN SCH ×3 (07:28→16:55)
[2018-10-12] MEDS: CARBIDOPA/LEVODOPA 25 MG/100 MG TABLET PO SCH ×3 (07:29→16:27)
[2018-10-12] MEDS: HEPARIN 5,000 UNITS/ML, 1ML SQ SCH ×2 (08:42→16:00)
[2018-10-12] MEDS: LISINOPRIL 20 MG TABLET PO SCH (08:43)
[2018-10-12] MEDS: FAMOTIDINE 20 MG TABLET PO SCH (08:43)
[2018-10-12] MEDS: AMLODIPINE 10 MG TAB PO SCH (08:43)
[2018-10-12] MEDS: FUROSEMIDE 20 MG TABLET PO SCH (08:43)
[2018-10-12] MEDS: ATORVASTATIN 20 MG TABLET PO SCH (08:43)
[2018-10-12] MEDS: DONEPEZIL 10 MG TABLET PO SCH (08:43)
[2018-10-12] MEDS: TAMSULOSIN 0.4 MG CAP.ER.24H PO SCH (08:43)
[2018-10-12] MEDS: GABAPENTIN 300 MG CAPSULE PO SCH (08:43)
[2018-10-12] MEDS: PRIMIDONE 50 MG TABLET PO SCH (08:44)
[2018-10-12 08:45] VITALS: BP 165/94
[2018-10-12] MEDS: POTASSIUM CHLORIDE 20 MEQ TAB.ER.PRT PO SCH (11:50)
[2018-10-12 12:43] VITALS: BP 137/77
[2018-10-12] MEDS ORDERED: INSU100I13 SQ-INSULIN (15:19)
[2018-10-12] MEDS ORDERED: DOXY100T10 PO (15:19)
[2018-10-12] MEDS ORDERED: AMOX1TAB64 PO (15:19)
[2018-10-12] MEDS ORDERED: L.AC1CAP6 PO (15:19)
[2018-10-12] MEDS: FLUOXETINE HCL 20 MG CAPSULE PO SCH (17:59)
== END 2018-10-12 19:25 | disposition home health service (06) | DRG 602 ==
LOC: ED 13:55 → EDIP 13:56 → ED 14:01 → 4NOR 17:43
PROVIDERS: ADMIT Internal Medicine; ATTEND Internal Medicine
DX: L03.116 Cellulitis of left lower limb (principal); L89.893 Pressure ulcer of other site, stage 3; E44.0 Moderate protein-calorie malnutrition; Z68.41 Body mass index [BMI] 40.0-44.9, adult; D64.9 Anemia, unspecified; E11.621 Type 2 diabetes mellitus with foot ulcer; E78.5 Hyperlipidemia, unspecified; F17.210 Nicotine dependence, cigarettes, uncomplicated; G20 Parkinson's disease; I10 Essential (primary) hypertension; L03.032 Cellulitis of left toe; L97.509 Non-pressure chronic ulcer of other part of unspecified foot with unspecified severity; N40.0 Benign prostatic hyperplasia without lower urinary tract symptoms; Z96.611 Presence of right artificial shoulder joint; Z89.411 Acquired absence of right great toe; Z79.899 Other long term (current) drug therapy
CPT/HCPCS: 36415; 80048; 80053; 80061; 80202; 82040; 82947; 82962; 83036; 83735; 84439; 84443; 85025; 85651; 86140; 87040; 87070; 87205; 96374; 96375; A9585; G0378; J0295; J1644; J3370; J1815; J7030; J7040

== ENCOUNTER 2019-06-27 17:30 | Emergency (ER) | payer MEDICARE, MEDICAID ==
[~2019-06-27] VITALS: Ht 177.8 cm; Wt 128.0 kg
[~2019-06-27 17:30] MED LIST changes: +AMOX1TAB64 PO; +DOXY100T23 PO; +INSU100I13 SQ-INSULIN; +L.AC1CAP6 PO
--- NOTE | 2019-06-27 17:51 | NUR ---
PT WITH SUDDEN ONSET OF EPIGASTRIC PAIN AND NAUSEA, PT STATES LASTED FOR 2 HRS. PT WAS AT [facility]OUND [facility] WHEN THIS HAPPENED AND THEY CALLED [facility]. PT DENIES CP, SOB, TRAUMA. NEG FOR VOMITTING. PT TO CARD MONITOR, BP, CONT PULSE OX. ERMD IN TO EVAL PT. ORDERS RECIEVED
[2019-06-27 17:59] LABS: BASOPHILS # (AUTO) 0.03 x10^3/uL (0-0.1); BASOPHILS % (AUTO) 0 % (0-1); EOSINOPHILS # (AUTO) 0.22 x10^3/uL (0-0.4); EOSINOPHILS % (AUTO) 2 % (1-7); LYMPHOCYTES # (AUTO) 1.17 x10^3/uL (1-3.4); LYMPHOCYTES % (AUTO) 12 % (22-44); MD NO; MEAN CORPUSCULAR HGB CONC 32.7 g/dL (33.2-36.2); MEAN CORPUSCULAR VOLUME 79.3 fL (81-97); MEAN PLATELET VOLUME 8.8 fL (7.4-10.4); MONOCYTES # (AUTO) 0.48 x10^3/uL (0.2-0.8); MONOCYTES % (AUTO) 5 % (2-9); NEUTROPHILS # (AUTO) 8.28 x10^3/uL (1.8-6.8); NEUTROPHILS % (AUTO) 81 % (42-75); PLATELET COUNT 243 x10^3/uL (130-400); RED BLOOD COUNT 6.51 x10^6/uL (4.38-5.82); RED CELL DISTRIBUTION WIDTH 17.3 % (9.4-14.8)
[2019-06-27 18:11] LABS: ALBUMIN 2.7 g/dL (3.4-5.0); ANION GAP 9 mmol/L (5-15); CALCIUM 9.1 mg/dL (8.5-10.1); CHLORIDE 100 mmol/L (98-107); CREATININE 1.05 mg/dL (0.7-1.3)
--- NOTE | 2019-06-27 18:12 | NUR ---
PT CAREGIVER OLEGARIO HER NUMBER IS [phone]
[2019-06-27 18:16] LABS: ALKALINE PHOSPHATASE 127 U/L (45-117); BILIRUBIN,TOTAL 0.4 mg/dL (0.2-1.0); TOTAL PROTEIN 7.2 g/dL (6.4-8.2); TROPONIN I < 0.015 ng/mL (0.000-0.045)
[2019-06-27 18:17] LABS: ALANINE AMINOTRANSFERASE 14 U/L (12-78)
[2019-06-27] MEDS ORDERED: OMNIPAQUE 350 MG/ML, 100ML BOTTLE ONE (18:40)
--- NOTE | 2019-06-27 19:03 | NUR ---
Report from AIXA De La Cruz Pt alert and resting on gurney. Pt on full monitors. Awaiting abd ct.
[2019-06-27 19:09] VITALS: BP 131/75
--- NOTE | 2019-06-27 19:10 | NUR ---
Caregiver Brittney called. States she is 40 mins away but leaving now.
--- NOTE | 2019-06-27 19:55 | NUR ---
Pt taken off monitors, IV removed. Pt dressed. Pt aware of wait for Brittney and denies needs at this time.
--- NOTE | 2019-06-27 20:25 | NUR ---
Pt dc'd to self care and care of cargiver. Pt alert and oriented. NAD. Education given to pt and caregiver including medications, follow-up, home care and S/Sx to return. Caregiver VU. Caregiver wheeled pt out.
== END 2019-06-27 20:27 | disposition home or self-care (01) ==
LOC: ED 19:00
DX: R10.13 Epigastric pain (principal); I11.0 Hypertensive heart disease with heart failure; I50.9 Heart failure, unspecified; E11.9 Type 2 diabetes mellitus without complications
CPT/HCPCS: 36415; 74177; 80053; 83690; 84484; 85025; 93005; 99284; Q9967

== ENCOUNTER 2019-07-05 17:05 | Emergency (ER) | payer MEDICARE, MEDICAID ==
[~2019-07-05] VITALS: Ht 177.8 cm; Wt 127.3 kg
[2019-07-05 17:20] VITALS: BP 197/98
--- NOTE | 2019-07-05 17:24 | NUR ---
Per HH nurse, pt was mildly hypoxic (low 90's) & tachycardic. Pt admits to dyspnea x 1 day. Denies CP, no orthopnea. Hx CHF, DM, chronic L toe wound having dressing changed twice wkly by home health. EKG done at time of arrival, cardiac, NIBP & SPO2 monitors IP.
--- NOTE | 2019-07-05 18:18 | NUR ---
awaiting lab. pt verbalizing displeasure at having to wait for lab work. "why am I here? i've been waiting a really long time". educated re: poc. call harding in reach. as
[2019-07-05 18:43] LABS: BASOPHILS # (AUTO) 0.01 x10^3/uL (0-0.1); BASOPHILS % (AUTO) 0 % (0-1); EOSINOPHILS # (AUTO) 0.09 x10^3/uL (0-0.4); EOSINOPHILS % (AUTO) 1 % (1-7); LYMPHOCYTES # (AUTO) 1.48 x10^3/uL (1-3.4); LYMPHOCYTES % (AUTO) 15 % (22-44); MD NO; MEAN CORPUSCULAR HEMOGLOBIN 25.7 pg (27.5-34.5); MEAN CORPUSCULAR HGB CONC 32.4 g/dL (33.2-36.2); MEAN CORPUSCULAR VOLUME 79.3 fL (81-97); MEAN PLATELET VOLUME 8.7 fL (7.4-10.4); MONOCYTES # (AUTO) 0.58 x10^3/uL (0.2-0.8); MONOCYTES % (AUTO) 6 % (2-9); NEUTROPHILS # (AUTO) 7.66 x10^3/uL (1.8-6.8); NEUTROPHILS % (AUTO) 78 % (42-75); PLATELET COUNT 261 x10^3/uL (130-400); RED BLOOD COUNT 6.56 x10^6/uL (4.38-5.82)
[2019-07-05 18:53] LABS: ALBUMIN 2.9 g/dL (3.4-5.0); ANION GAP 9 mmol/L (5-15); CALCIUM 8.7 mg/dL (8.5-10.1); CHLORIDE 105 mmol/L (98-107); CREATININE 0.81 mg/dL (0.7-1.3)
[2019-07-05 18:55] LABS: TROPONIN I < 0.015 ng/mL (0.000-0.045)
--- NOTE | 2019-07-05 18:57 | NUR ---
REPORT TO ALBERT KRUSE.
--- NOTE | 2019-07-05 18:58 | NUR ---
REPORT RECEIVED FROM AIXA PARR. ASSUMED CARE OF PT
--- NOTE | 2019-07-05 19:03 | NUR ---
DR. ORTIZ AT BEDSIDE UPDATING PT ON POC.
--- NOTE | 2019-07-05 19:35 | NUR ---
PT AMBULATORY TO RESTROOM. STEADY GAIT NOTED.
--- NOTE | 2019-07-05 19:46 | NUR ---
Patient/Caregiver given discharge instructions and they have confirmed that they understand the instructions. Patient ambulatory with steady gait.
== END 2019-07-05 19:53 | disposition home or self-care (01) ==
LOC: ED 19:48
DX: R06.00 Dyspnea, unspecified (principal); I11.0 Hypertensive heart disease with heart failure; I50.9 Heart failure, unspecified; E11.9 Type 2 diabetes mellitus without complications; I25.2 Old myocardial infarction; F17.200 Nicotine dependence, unspecified, uncomplicated; G20 Parkinson's disease; Z89.429 Acquired absence of other toe(s), unspecified side
CPT/HCPCS: 36415; 71045; 80048; 82040; 83880; 84484; 85025; 93005; 99284

== ENCOUNTER 2019-08-29 17:20 | Emergency (ER) | payer MEDICARE, MEDICAID ==
[~2019-08-29] VITALS: Ht 180.3 cm; Wt 129.5 kg
[2019-08-29 17:50] LABS: BASOPHILS # (AUTO) 0.02 x10^3/uL (0-0.1); BASOPHILS % (AUTO) 0 % (0-1); EOSINOPHILS # (AUTO) 0.11 x10^3/uL (0-0.4); EOSINOPHILS % (AUTO) 1 % (1-7); LYMPHOCYTES # (AUTO) 1.27 x10^3/uL (1-3.4); LYMPHOCYTES % (AUTO) 12 % (22-44); MD NO; MEAN CORPUSCULAR HEMOGLOBIN 26.1 pg (27.5-34.5); MEAN CORPUSCULAR HGB CONC 32.6 g/dL (33.2-36.2); MEAN CORPUSCULAR VOLUME 80.3 fL (81-97); MEAN PLATELET VOLUME 8.5 fL (7.4-10.4); MONOCYTES # (AUTO) 0.47 x10^3/uL (0.2-0.8); MONOCYTES % (AUTO) 4 % (2-9); NEUTROPHILS # (AUTO) 8.84 x10^3/uL (1.8-6.8); NEUTROPHILS % (AUTO) 83 % (42-75); PLATELET COUNT 264 x10^3/uL (130-400); RED BLOOD COUNT 6.48 x10^6/uL (4.38-5.82); RED CELL DISTRIBUTION WIDTH 17.5 % (9.4-14.8)
[2019-08-29 18:01] LABS: ALANINE AMINOTRANSFERASE 27 U/L (12-78); ANION GAP 7 mmol/L (5-15); CALCIUM 8.9 mg/dL (8.5-10.1); CHLORIDE 105 mmol/L (98-107); CREATININE 0.77 mg/dL (0.7-1.3)
--- NOTE | 2019-08-29 18:01 | NUR ---
THIS IS A 64 YO MALE WHO PRESENTS TO THE ER C/O SOB X 3 HOURS. PT JABARI SORE THROAT, COUGH, CONGESTION, CP OR FEVERS. PT AO X 4. SLIGHTLY FORGETFUL BUT ANSWERING ALL QUESTIONS APPROPRIATELY AT THIS TIME. PT UP TO RESTROOM AND BACK TO [facility], STEADY UPON AMBULATION WITH SBA. PT ON CONT BP, CARDIAC AND O2 MONITORS NSR 90'S NOTED TO FREIGHT RATE ANALYST. CALL LIGHT WITHIN REACH. WILL CONT TO MONITOR PT.
[2019-08-29 18:06] LABS: ALKALINE PHOSPHATASE 104 U/L (45-117); BILIRUBIN,TOTAL 0.3 mg/dL (0.2-1.0); TOTAL PROTEIN 7.5 g/dL (6.4-8.2); TROPONIN I < 0.015 ng/mL (0.000-0.045)
[2019-08-29 19:15] VITALS: BP 181/83
== END 2019-08-29 19:17 | disposition home or self-care (01) ==
LOC: MERGE 17:20 → ED 17:49
DX: R06.00 Dyspnea, unspecified (principal); R53.1 Weakness; I44.4 Left anterior fascicular block; I21.4 Non-ST elevation (NSTEMI) myocardial infarction; R94.31 Abnormal electrocardiogram [ECG] [EKG]; I11.0 Hypertensive heart disease with heart failure; I50.9 Heart failure, unspecified; E11.9 Type 2 diabetes mellitus without complications; G20 Parkinson's disease
CPT/HCPCS: 36415; 71045; 80053; 83880; 84484; 85025; 93005; 99285